=== PATIENT | male | born 1995 | race Two or more races ===

== ENCOUNTER 2025-09-17 18:17 | Inpatient (IN) | payer OTHER ==
[~2025-09-17] VITALS: Ht 177.8 cm; Wt 79.0 kg
--- NOTE | 2025-09-17 18:38 | ED.PDOC ---
Musculoskeletal HPI Comments HPI: Poor Historian. 29-year-old male brought in by camp guard as inmate for known left ankle fracture to the 5th metatarsal base avulsion. Patient was called back to be admitted to the hospital for surgical intervention and repair tomorrow morning by Dr. Vivar. Patient does not appear to be in any severe distress at this fine. He says his pain is only present when he ambulates or patient's weight. Patient states he suffered the injury playing soccer over a week ago. Patient denies any other injuries or complaints. Past Medical History: Denies Past Surgical History: Denies REVIEW OF SYSTEMS: CONSTITUTIONAL: Denies acute: fever, diaphoresis, chills, generalized weakness. HEAD: Denies acute: headache, photophobia Eyes: Denies acute: Double vision, vision loss, eye pain, eye discharge. EARS: Denies acute: tinnitus, hearing loss, ear discharge, ear pain, THROAT: Denies acute: sore throat, swelling, difficulty swallowing , pain with swallowing, change in voice. NECK: Denies acute: neck pain, neck swelling, stiff neck. HEART: Denies acute : chest pain, palpitations, LUNGS: Denies acute: SOB, wheezing, cough, hemoptysis ABDOMEN: Denies acute: abdominal pain, Nausea, Vomiting, diarrhea, melena , hematemesis, hematochezia SKIN: Denies acute: rash, redness, lesions, itchiness. EXTREMITIES: Denies acute: calf pain, numbness, tingling, weakness, Denies acute: Low back pain. Neuro: Denies acute: focal neurological deficit, motor or sensory focal neurological deficit, tremors, seizure like activity, confusion, dizziness, change in mental status, loss of bowel or bladder function, cauda equina like symptoms. : Denies acute: dysuria, hematuria, flank pain, increase in urinary frequency. PSYCH: Denies acute: hallucination, suicidal ideation, homicidal ideation. PHYSICAL EXAM: General: ----no----acute distress, awake and alert. Head: normocephalic, atraumatic. No raccoon's eyes, no mccarthy sign. Neck: supple, trachea is midline, no swelling. Throat: Normal phonation. Eyes:, no erythema, no purulent discharge, no proptosis, no icterus. Heart: regular rate, regular rhythm, no significant murmur appreciated. Lungs: no apparent respiratory distress, Able to speak in full sentences. No wheezing, no rhonchi, no crackles. No stridors Clear to auscultation bilaterally. Abdomen: non tender to palpation, non distended, soft, no guarding, no rebound, + bowel sounds. Neuro: Awake, Alert, oriented to name, self, situation, follows commands GCS=15. Speech is normal. Skin: no petechia, no purpura, no cyanosis, non-pale, not jaundice. Lower extremities: --no - Pitting edema no calf TTP. Evaluation of the left foot: Patient is neurovascularly intact in the affected extremity. Pedal pulses palpable. Sensory and motor are present. Focal tenderness to palpation over the lateral aspect of the left foot at the base of the metatarsal. Makes eye contact. moves all four extremities. Face: no apparent facial droop. ED COURSE: DISCLAIMER: This medical document was created using an electronic medical record system with voice recognition software and computerized dictation system. Although this document has been carefully reviewed, there might still be some phonetic and typographical errors. Occasional wrong-word or "sound-alike" substitutions may have occurred due to the inherent limitations of voice recognition software. These areas are purely typographical due to imperfections of the software programs and do not reflect any compromise in the patient's medical care. Please read the chart carefully and recognize, using context, where these substitutions have occurred. Chief Complaint: Lower Extremity Time Seen by MD: 18:23 Reviewed Notes: Allergies Allergies: Coded Allergies: NO KNOWN ALLERGIES (Unverified , 09/17/25) Home Meds No Active Prescriptions or Reported Meds Information Source: Patient Mode of Arrival: Wheelchair Location: Left Was a procedure done? Was a procedure done?: No Differential Diagnosis EXT Differential Diagnosis: Cellulitis, CHF, Deep Vein Thrombosis, Compartment Synd ashu, Fracture, Sprain, Dislocation, Gout, DJD, Contusion, Strain, Septic, Neurovascular injury, Arthritis, Bursitis X-Ray, Labs, Meds, VS Vital Signs Date Time Temp Pulse Resp B/P (MAP) Pulse Ox O2 Delivery O2 Flow Rate FiO2 11/20/25 21:00 55 18 104/60 (75) 98 09/17/25 20:20 Room Air* 0 21 09/17/25 19:44 98.0 57 16 137/74 (95) 98 98.0 09/17/25 19:44 Room Air* 0 21 09/17/25 18:27 98.2 55 16 144/67 98 98.2 Lab Test 09/17/25 18:43 Range/Units White Blood Count 7.4 4.4-10.8 10^3/uL Red Blood Count 5.70 4.5-5.90 10^6/uL Hemoglobin 15.8 13.5-17.5 g/dL Hematocrit 47.1 41.0-53.0 % Mean Corpuscular Volume 82.7 80.0-100.0 fL Mean Corpuscular Hemoglobin 27.8 L 28.0-32.0 pg Mean Corpuscular Hemoglobin Concent 33.6 32.0-36.0 g/dL Red Cell Distribution Width 13.3 11.8-14.3 % Platelet Count 310 140-450 10^3/uL Mean Platelet Volume 7.8 6.9-10.8 fL Neutrophils (%) (Auto) 42.9 37.0-80.0 % Lymphocytes (%) (Auto) 45.6 10.0-50.0 % Monocytes (%) (Auto) 8.7 0.0-12.0 % Eosinophils (%) (Auto) 2.2 0.0-7.0 % Basophils (%) (Auto) 0.6 0.0-2.0 % Neutrophils # (Auto) 3.2 1.6-8.6 10 ^3/uL Lymphocytes # (Auto) 3.4 0.4-5.4 10 ^3/uL Monocytes # (Auto) 0.6 0-1.3 10 ^3/uL Eosinophils # (Auto) 0.2 0-0.8 10 ^3/uL Basophils # (Auto) 0 0-0.2 10 ^3/uL Nucleated Red Blood Cells 0.1 % Sodium Level 140 136-145 mmol/L Potassium Level 4.0 3.5-5.1 mmol/L Chloride Level 105 98-107 mmol/L Carbon Dioxide Level 24 20-31 mmol/L Anion Gap 11 5-15 Blood Urea Nitrogen 12 9-23 mg/dL Creatinine 1.12 0.700-1.30 mg/dL Glomerular Filtration Rate Calc 92 >90 mL/min BUN/Creatinine Ratio 10.7 10.0-20.0 Serum Glucose 98 74-106 mg/dL Calcium Level 9.6 8.7-10.4 mg/dL Total Bilirubin 0.9 0.2-1.0 mg/dL Aspartate Amino Transferase (AST) 30 13-40 U/L Alanine Aminotransferase (ALT) 61 H 7-40 U/L Alkaline Phosphatase 134 H 46-116 U/L Total Protein 7.7 5.7-8.2 g/dL Albumin 4.7 3.2-4.8 g/dL [place] [id number] Ph: [phone] DIAGNOSTIC IMAGING Diagnostic Imaging Report : [id number] Signed PATIENT: MATTIE PHELPS ACCT: [id number] UNIT: [id number] : 1995 LOC: ER ROOM / BED: / AGE / SEX: 29 / M ADM STATUS: REG ER SERVICE 36 ORDERING PHYSICIAN: NHI BELL DO PROCEDURE(s): LANKL - L ANKLE 3 VIEW REASON: INJURY ORDER NUMBER(s): [id number], ACCESSION NUMBER(s): [id number] CLINICAL INDICATION: INJURY TECHNIQUE: 3 radiographic views of the left ankle were obtained. Comparison: None FINDINGS/IMPRESSION: Mildly displaced fracture of the base of the 5th metatarsal is seen. Distal tibia and fibula are intact. ATED BY: LAZARA SHARP Jr., DO DICTATED DATE/TIME: 09/17/252056 SIGNED BY: LAZARA SHARP Jr., DO SIGNED DATE/TIME: 09/17/252056 CC: Time of 1ST Reevaluation: 00:00 Reevaluation 1ST: N/A Patient Education/Counseling: Diagnosis, Treatment Family Education/Counseling: No Family Present Comments MDM: patient presented with the above HPI.--left 5th metatarsal fracture----workup was initiated. patient was found with the above mentioned diagnosis. the following medications were ordered: please refer to order lists of meds and tests obtained by myself Dr. Bell. Patient ED course and VS have been stabilized. Patient has been reassessed in the ED and remained in a stable condition. Pertinent incidental findings were discussed with the patient and/or family. Patient/family voices understanding and is agreeable with plan. Patient has been observed in the ED adequate length of time to insure improvement/stability. Escalation of care considered: Consideration of escalation to observation or admission Patient was ADMITTED to the medicine team for further evaluation and treatment of their presentation. All the reports of any imaging studies that were ordered by myself were reviewed by myself. Departure 1 Departure Time of Disposition: 19:32 Impression: Primary Impression: Fracture of base of fifth metatarsal bone of left foot Disposition: ADMITTED INPATIENT Admit to: Med Surg Condition: Guarded e-Prescriptions No Active Prescriptions or Reported Meds Discharged With: Self Critical Care Note Critical Care Time?: No I personally scribed for NHI BELL DO ([email or web address]) on 09/17/25 at 18:38. Electronically submitted by Alejandro DeL a Rosa ([email or web address]). NHI BELL DO Sep 17, 2025 18:38
[2025-09-17 18:57] LABS: Hematocrit 47.1 % (41.0-53.0); Hemoglobin 15.8 g/dL (13.5-17.5); Mean Corpuscular Hemoglobin 27.8 pg (28.0-32.0); Mean Corpuscular Volume 82.7 fL (80.0-100.0); Nucleated Red Blood Cells % 0.1 %
[2025-09-17 19:07] LABS: Albumin 4.7 g/dL (3.2-4.8); Anion Gap 11 (5-15); BUN/Creatinine Ratio 10.7 (10.0-20.0); Bilirubin, Total 0.9 mg/dL (0.2-1.0); Blood Urea Nitrogen 12 mg/dL (9-23); Calcium 9.6 mg/dL (8.7-10.4); Carbon Dioxide 24 mmol/L (20-31); Chloride 105 mmol/L (98-107); Glucose 98 mg/dL (74-106); Potassium 4.0 mmol/L (3.5-5.1); Sodium 140 mmol/L (136-145); Total Protein 7.7 g/dL (5.7-8.2)
[2025-09-17 19:09] LABS: Alanine Aminotransferase 61 U/L (7-40); Alkaline Phosphatase 134 U/L (46-116)
--- NOTE | 2025-09-17 21:00 | DVH ---
CLINICAL INDICATION: INJURY TECHNIQUE: 3 radiographic views of the left ankle were obtained. Comparison: None FINDINGS/IMPRESSION: Mildly displaced fracture of the base of the 5th metatarsal is seen. Distal tibia and fibula are intact.
--- NOTE | 2025-09-17 21:38 | DVHHPRES ---
History of Present Illness Resident Creating Document: BEBETO CAMARA RESIDENT History of Present Illness Zachary Sharma, 29-year-old male accompanied by intermediate guards, with no significant past medical history presented to the ER with left lateral ankle pain. The patient was playing when his left ankle twisted, the patient started having pain. X-ray of the left ankle in the ER revealed a right 5th metatarsal fracture. The patient is not experiencing pain at this moment after having analgesics, he denies any chest pain, shortness of breath, fever or any other complaints today. Past medical and surgical history: Nothing significant Smokin pack per 2 months occasionally Alcohol occasionally Denied drug abuse Code status full code Review of Systems Allergies: Coded Allergies: NO KNOWN ALLERGIES (Unverified , 09/17/25) Exam Vital Signs Vital Signs Date Time Temp Pulse Resp B/P (MAP) Pulse Ox O2 Delivery O2 Flow Rate FiO2 09/17/25 20:20 Room Air* 0 21 09/17/25 19:44 98.0 57 16 137/74 (95) 98 98.0 Exam Pt is lying on bed General Appearance: Alert, Oriented X3, Cooperative, Mild distress HEENT: Atraumatic, Mucous membranes moist/pink Respiratory: Clear to auscultation, Normal air movement, No added sounds Cardiovascular: Regular rate, Normal S1, Normal S2, No murmurs Abdominal/ : Active bowel sounds, Soft, no distention, no tenderness Extremities: No edema, Normal pulses, left lateral feet tenderness Skin: No Significant rash, except past surgical scars Neuro: Normal speech, sensorimotor deficits none Psych/Mental Status: Mental status NL, Mood NL Nurse was there as graduate studies dean during examination Labs/Xrays Labs Test 09/17/25 18:43 Range/Units White Blood Count 7.4 4.4-10.8 10^3/uL Red Blood Count 5.70 4.5-5.90 10^6/uL Hemoglobin 15.8 13.5-17.5 g/dL Hematocrit 47.1 41.0-53.0 % Mean Corpuscular Volume 82.7 80.0-100.0 fL Mean Corpuscular Hemoglobin 27.8 L 28.0-32.0 pg Mean Corpuscular Hemoglobin Concent 33.6 32.0-36.0 g/dL Red Cell Distribution Width 13.3 11.8-14.3 % Platelet Count 310 140-450 10^3/uL Mean Platelet Volume 7.8 6.9-10.8 fL Neutrophils (%) (Auto) 42.9 37.0-80.0 % Lymphocytes (%) (Auto) 45.6 10.0-50.0 % Monocytes (%) (Auto) 8.7 0.0-12.0 % Eosinophils (%) (Auto) 2.2 0.0-7.0 % Basophils (%) (Auto) 0.6 0.0-2.0 % Neutrophils # (Auto) 3.2 1.6-8.6 10 ^3/uL Lymphocytes # (Auto) 3.4 0.4-5.4 10 ^3/uL Monocytes # (Auto) 0.6 0-1.3 10 ^3/uL Eosinophils # (Auto) 0.2 0-0.8 10 ^3/uL Basophils # (Auto) 0 0-0.2 10 ^3/uL Nucleated Red Blood Cells 0.1 % Sodium Level 140 136-145 mmol/L Potassium Level 4.0 3.5-5.1 mmol/L Chloride Level 105 98-107 mmol/L Carbon Dioxide Level 24 20-31 mmol/L Anion Gap 11 5-15 Blood Urea Nitrogen 12 9-23 mg/dL Creatinine 1.12 0.700-1.30 mg/dL Glomerular Filtration Rate Calc 92 >90 mL/min BUN/Creatinine Ratio 10.7 10.0-20.0 Serum Glucose 98 74-106 mg/dL Calcium Level 9.6 8.7-10.4 mg/dL Total Bilirubin 0.9 0.2-1.0 mg/dL Aspartate Amino Transferase (AST) 30 13-40 U/L Alanine Aminotransferase (ALT) 61 H 7-40 U/L Alkaline Phosphatase 134 H 46-116 U/L Total Protein 7.7 5.7-8.2 g/dL Albumin 4.7 3.2-4.8 g/dL SEPSIS Sepsis Screen Date sepsis recognized/suspect: Sep 17, 2025 Time Sepsis recognized/suspect: 1943 Recent Procedure: No On Antibiotic Therapy: No Respiratory Rate >20: No Heart Rate >90: No Temp<36 C (96.8 F) or >38.3 C: No SBP <90 or MAP <65 mmHG: No New Acute Mental Status Change: No Is the patient on CPAP, BIPAP,: No Physician Orders Chief Information Security Officer (09/17/25 ) L Ankle 3 View (09/17/25 18:37) Vital Signs Date Time Temp Pulse Resp B/P (MAP) Pulse Ox O2 Delivery O2 Flow Rate FiO2 09/17/25 20:20 Room Air* 0 21 09/17/25 19:44 98.0 57 16 137/74 (95) 98 98.0 09/17/25 19:44 Room Air* 0 21 09/17/25 18:27 98.2 55 16 144/67 98 98.2 Laboratory Tests Test 09/17/25 18:43 White Blood Count 7.4 10^3/uL (4.4-10.8) Assessment/Plan Assessment/Plan Left 5th metatarsal fracture Ankle x-ray: Mildly displaced fracture of the base of the 5th metatarsal is seen. Distal tibia and fibula are intact. -ibuprofen -orthopedics consulted Asymptomatic bradycardia EKG reveals sinus bradycardia heart rate in 40s Monitor for signs symptoms of bradycardia Mild transaminase AST=2ALT Monitor labs GI prophylaxis: Not indicated DVT prophylaxis: Lovenox Diet: Regular Goals of care discussed with the patient for more than 27 minutes: Full code status Case discussed with , patient and RN Plan discussed with: Patient, Other (RN) Date of Service: Sep 17, 2025 Billing Provider: JOSÉ MIGUEL WALL MD Common Visit Codes: 07098-[id number] INP/OBS CARE (HIGH) Secondary Visit Codes: 66625-LCPPNBPA CARE PLAN 30 MINUTES BEBETO CAMARA Sep 17, 2025 21:38 JOSÉ MIGUEL WALL MD Sep 21, 2025 11:24
--- NOTE | 2025-09-17 22:05 | DVH ---
CHEST RADIOGRAPH Indication: Pre operative Technique: Single frontal view of the chest was obtained. Comparison: None Findings: No focal consolidation. No significant pleural effusion. No pneumothorax. Nonenlarged cardiomediastinal silhouette. IMPRESSION: No acute pulmonary process.
[2025-09-17 22:21] LABS: INR 1.01 (0.9-1.15); Partial Thromboplastin Time 28.2 SEC (24.5-34.5); Prothrombin Time 10.7 sec (9.3-11.8)
[2025-09-18] VITALS (9 sets, daily range): BP systolic 103–129; BP diastolic 58–98; PULSE 46–85; RESP 16–19; TEMP 97.5–98.7; O2SAT 96–100
--- NOTE | 2025-09-18 00:42 | ECG ---
[facility] Test Date: 2025-09-18 Test Time: 00:38:57 Pat Name: MATTIE PHELPS Department: ED Room: 0208 Gender: M Laborer Hoisting: NEYMAR : 1995 Requested By: NHI BELL Order Number: [id number] Reading MD: Keith De Leon Measurements Intervals [place] Rate: 45 P: 57 NH: 160 QRS: 80 QRSD: 89 T: 50 QT: 456 QTc: 395 Interpretive Statements Sinus bradycardia Electronically Signed On 09-18-2025 9:10:49 PST by Keith De Leon Please click the below link to view image of tracing.
[2025-09-18] MEDS ORDERED: ceFAZolin 2 GM/D5W50ml 50 ML IV ONE (08:52)
[2025-09-18] MEDS ORDERED: PROPOFOL 10 MG/ML 20 ML IV ONE (09:05)
[2025-09-18] MEDS ORDERED: SODIUM CHLORIDE LOCK 10 ML ONE (09:05)
[2025-09-18] MEDS ORDERED: ONDANSETRON HCL 4 MG/2 ML VIAL ONE (09:05)
[2025-09-18] MEDS ORDERED: MEPERIDINE HCL (25 MG/ML) 1ML VIAL ONE (09:05)
[2025-09-18] MEDS ORDERED: fentaNYL CITRATE 100 MCG/2 ML VL ONE (09:05)
[2025-09-18] MEDS ORDERED: LIDOCAINE 1% INJ PF 5ML AMP ONE (09:05)
[2025-09-18] MEDS ORDERED: MIDAZOLAM HCL 2MG/2ML 2ml VIAL (1mg/ml) ONE (09:05)
[2025-09-18] MEDS ORDERED: KETAMINE 50mg/ML 1ml syringe ONE (09:05)
--- NOTE | 2025-09-18 09:09 | DVHINCON2 ---
Date of service: Sep 17, 2025 Reason for Consultation Left fifth metatarsal fracture History of Present Illness 29 yo M with 1 week hx of playing soccer and injuring his left foot. immediate pain/swellign/trouble bearing weight on left leg. No cp/sob/abd pain. He has not been weight bearing on left leg. Past Medical History Past medical and surgical history: Denies Smokin pack per month Alcohol occasionally Denied drug abuse Past Surgical History denies Family History: Patient reports no known family medical history. Social History incarcerated Allergies: Coded Allergies: NO KNOWN ALLERGIES (Unverified , 09/17/25) Home Meds No Active Prescriptions or Reported Meds Current Medications Current Medications Medications (Trade) Dose Ordered Sig/Rylee Route PRN Reason Start Time Stop Time Status Last Admin Enoxaparin Sodium (Lovenox) 40 mg DAILY SC 09/18/25 10:00 Review of Systems 10 point ROS is neg except per HPI Vital Signs Vital Signs Date Time Temp Pulse Resp B/P (MAP) Pulse Ox O2 Delivery O2 Flow Rate FiO2 09/18/25 08:02 Room Air* 0 21 09/18/25 05:00 97.5 76 18 104/58 (73) 100 97.5 Physical Exam NAD LLE: +swelling/bruising noted to midfoot to calc +ta/gs/ehl/fhl foot wwp pain with PROM at fifth toe Labs/Diagnostic Data Labs Test 09/18/25 08:15 09/17/25 21:57 09/17/25 18:43 Range/Units Prothrombin Time 10.7 9.3-11.8 sec Prothrombin Time INR 1.01 0.9-1.15 Activated Partial Thromboplast Time 28.2 24.5-34.5 SEC White Blood Count 7.4 4.4-10.8 10^3/uL Red Blood Count 5.70 4.5-5.90 10^6/uL Hemoglobin 15.8 13.5-17.5 g/dL Hematocrit 47.1 41.0-53.0 % Mean Corpuscular Volume 82.7 80.0-100.0 fL Mean Corpuscular Hemoglobin 27.8 L 28.0-32.0 pg Mean Corpuscular Hemoglobin Concent 33.6 32.0-36.0 g/dL Red Cell Distribution Width 13.3 11.8-14.3 % Platelet Count 310 140-450 10^3/uL Mean Platelet Volume 7.8 6.9-10.8 fL Neutrophils (%) (Auto) 42.9 37.0-80.0 % Lymphocytes (%) (Auto) 45.6 10.0-50.0 % Monocytes (%) (Auto) 8.7 0.0-12.0 % Eosinophils (%) (Auto) 2.2 0.0-7.0 % Basophils (%) (Auto) 0.6 0.0-2.0 % Neutrophils # (Auto) 3.2 1.6-8.6 10 ^3/uL Lymphocytes # (Auto) 3.4 0.4-5.4 10 ^3/uL Monocytes # (Auto) 0.6 0-1.3 10 ^3/uL Eosinophils # (Auto) 0.2 0-0.8 10 ^3/uL Basophils # (Auto) 0 0-0.2 10 ^3/uL Nucleated Red Blood Cells 0.1 % Sodium Level 140 136-145 mmol/L Potassium Level 4.0 3.5-5.1 mmol/L Chloride Level 105 98-107 mmol/L Carbon Dioxide Level 24 20-31 mmol/L Anion Gap 11 5-15 Blood Urea Nitrogen 12 9-23 mg/dL Creatinine 1.12 0.700-1.30 mg/dL Glomerular Filtration Rate Calc 92 >90 mL/min BUN/Creatinine Ratio 10.7 10.0-20.0 Serum Glucose 98 74-106 mg/dL Calcium Level 9.6 8.7-10.4 mg/dL Total Bilirubin 0.9 0.2-1.0 mg/dL Aspartate Amino Transferase (AST) 30 13-40 U/L Alanine Aminotransferase (ALT) 61 H 7-40 U/L Alkaline Phosphatase 134 H 46-116 U/L Total Protein 7.7 5.7-8.2 g/dL Albumin 4.7 3.2-4.8 g/dL Plan/Recommendation 29 yo M sp mechanical twisting injury to left foot with displaced left fifth metatarsal fracture 1. Plan for open reduction internal fixation of left fifth metatarsal fracture/ peroneal tendon repair 2. Risks benefits options and alternatives reviewed in depth. Risks include but not exclusive to bleeding infection nerve injury hardware failure nonunion malunion chronic pain blood clots cardiac and pulmonary complications amputation and . Patient understands and wishes to proceed with surgery. 3. NPO/IVF 4. pain control Plan discussed with: Patient BANDAR MARTIN MD Sep 18, 2025 09:09
--- NOTE | 2025-09-18 09:12 | DVHOP2 ---
Operative Report - 2 Report Details Date: 09/18/25 Preop Diagnosis: Left fifth metatarsal fracture, peroneal brevis tendon tear Postop Diagnosis: Left fifth metatarsal fracture, peroneal brevis tendon tear Surgeon: Rigo Olivia MD Anesthesiologist: Dionicio ELAINE Anesthesia: General Implant: Ossio 4.0 screw Consent: The patient was informed of the risks and benefits of the procedure. These include but are not limited to complications of anesthesia, postoperative infection, incomplete relief of symptoms, recurrence of symptoms, damage to blood vessels, nerves and tendons, deep venous thrombosis, pulmonary embolism and possible need for repeat surgery in the future. Estimated Blood Loss: 5 cc Name of Procedure Performed 1. Open reduction internal fixation of left fifth metatarsal fracture 2. Peroneal brevis tendon repair 3. Intraop fluoroscopy Procedure Details Procedure Details: INDICATIONS: sustained a left fifth metatarsal base fracture with associated peroneus brevis tendon injury. Given the displacement and risk of nonunion, as well as the tendon injury, operative management was indicated. DESCRIPTION OF PROCEDURE: The patient was brought to the operating room and placed supine on the operating table. After induction of general anesthesia, The left foot was prepped and draped in the usual sterile fashion. An approximately 4 cm longitudinal incision was made over the lateral aspect of the left foot, centered over the base of the fifth metatarsal. Dissection was carried down through the subcutaneous tissue, taking care to protect the sural nerve and peroneal tendons. The fracture at the base of the fifth metatarsal was identified. Hematoma and interposed soft tissue were cleared from the fracture site. The peroneus brevis tendon was visualized at its insertion on the fifth metatarsal tuberosity and noted to be avulsed and torn. The peroneus brevis tendon was debrided of any devitalized tissue. The tendon ends were reapproximated using a nonabsorbable suture in a modified Krackow fashion, ensuring anatomic methodist of tendon continuity and tension. The repair was reinforced with additional epitendinous sutures as needed. The fracture fragments were reduced anatomically under direct visualization and temporarily stabilized with a Iliana wire. Intraoperative fluoroscopy was used to confirm satisfactory reduction in both AP and oblique planes. Definitive fixation was achieved using a 4.0 absorbable ossio screw, placed from the base of the fifth metatarsal into the shaft, ensuring purchase across the fracture site. The fixation was confirmed to be stable under fluoroscopy, with methodist of length, alignment, and rotation. The wound was irrigated with copious saline. The peroneal tendon sheath was closed with absorbable suture. The subcutaneous tissue and skin were closed in layers with absorbable suture/ steri-strips/dermabond respectively. A sterile dressing was applied, and the foot was placed in a well-padded posterior splint in neutral position. Condition Good Disposition Still a Patient RIGO OLIVIA MD Sep 18, 2025 09:12
[2025-09-18] MEDS ORDERED: HYDROcodone-ACET 5/325MG TAB PO PRN (10:00)
[2025-09-18] MEDS ORDERED: HYDROmorphone HCL 2 MG/ML VL/or syr IV PRN ×3 (10:00→10:30)
[2025-09-18] MEDS: ENOXAPARIN SOD 40 MG/0.4 ML SYRINGE SC SCH (10:00)
[2025-09-18] MEDS ORDERED: MORPHINE SULFATE 4 MG/ML SYR/VIAL IV PRN (10:30)
[2025-09-18] MEDS ORDERED: MORPHINE SULFATE INJ 2 MG/ml SYRG IV PRN (10:30)
[2025-09-18] MEDS ORDERED: METOCLOPRAMIDE HCL 5MG/ml INJ 2ml VIAL IV PRN (10:30)
[2025-09-18] MEDS: KETOROLAC TROMETH 30 MG/ML 1ML VIAL IV ONE (10:43)
[2025-09-18 11:22] LABS: Hepatitis A Total Antibody Positive (Negative); Hepatitis B Surface Antigen Negative (Negative); Hepatitis C Antibody Negative (Negative)
[2025-09-18] MEDS: ceFAZolin 1GM/50ML 50 ML IV SCH (15:01)
--- NOTE | 2025-09-18 15:35 | DVHPN2 ---
Reviewed: H&P Changes from previous H/P or p: No Changes General: Per HPI Objective Vitals Vital Signs Date Time Temp Pulse Resp B/P (MAP) Pulse Ox O2 Delivery O2 Flow Rate FiO2 09/18/25 13:00 98.1 61 16 111/77 (88) 98 98.1 09/18/25 10:13 Room Air 0 96 Intake/Output Intake and Output 09/18/25 07:00 Intake Total 0 ml Balance 0 ml Intake Oral 0 ml # Voids 1 Exam General Appearance: Alert, Oriented X3, Cooperative, Mild distress HEENT: Atraumatic, Mucous membranes moist/pink Respiratory: Clear to auscultation, Normal air movement, No added sounds Cardiovascular: Regular rate, Normal S1, Normal S2, No murmurs Abdominal/ : Active bowel sounds, Soft, no distention, no tenderness Extremities: No edema, Normal pulses, left lateral feet tenderness Skin: No Significant rash, except past surgical scars Neuro: Normal speech, sensorimotor deficits none Psych/Mental Status: Mental status NL, Mood NL Nurse was there as scabbler during examination Medications Current Medications Medications Dose Ordered Sig/Rylee Route Start Time Stop Time Status Last Admin Dose Admin Enoxaparin Sodium 40 mg DAILY SC 09/18/25 10:00 Cefazolin Sodium 50 ml @ 100 mls/hr Q8HR IV 09/18/25 14:00 09/19/25 06:29 09/18/25 15:01 100 MLS/HR Acetaminophen/ Hydrocodone Bitart 1 tab Q4HPRN PRN PO 09/18/25 10:00 Acetaminophen/ Hydrocodone Bitart 1 tab Q6HPRN PRN PO 09/18/25 10:15 Hydromorphone HCl 0.5 mg Q3HPRN PRN IV 09/18/25 10:00 Hold Laboratory Results Laboratory Tests 09/17/25 18:43 Chemistry Test 09/17/25 18:43 Albumin 4.7 g/dL (3.2-4.8) Calcium Level 9.6 mg/dL (8.7-10.4) Total Protein 7.7 g/dL (5.7-8.2) Coagulation Test 09/17/25 21:57 Prothrombin Time 10.7 sec (9.3-11.8) Prothrombin Time INR 1.01 (0.9-1.15) Activated Partial Thromboplast Time 28.2 SEC (24.5-34.5) LFT Test 09/17/25 18:43 Alanine Aminotransferase (ALT) 61 U/L (7-40) H Alkaline Phosphatase 134 U/L (46-116) H Aspartate Amino Transferase (AST) 30 U/L (13-40) Total Bilirubin 0.9 mg/dL (0.2-1.0) Labs and/or images reviewed: Labs reviewed by me, Image(s) reviewed by me Assessment/Plan Assessment/Plan Zachary Sharma, 29-year-old male accompanied by detention guards, with no significant past medical history presented to the ER with left lateral ankle pain. The patient was playing when his left ankle twisted, the patient started having pain. X-ray of the left ankle in the ER revealed a right 5th metatarsal fracture. The patient is not experiencing pain at this moment after having analgesics, he denies any chest pain, shortness of breath, fever or any other complaints today. 09/18: Patient had surgery today ORIF of left 5th metatarsal. Patient is non weight-bearing for the left lower extremity. PT consult pending. Focus on pain control and beta recommendations. Left 5th metatarsal fracture sp ORIF 09/18 Ankle x-ray: Mildly displaced fracture of the base of the 5th metatarsal is seen. Distal tibia and fibula are intact. -ibuprofen -orthopedics consulted. sp ORIF Asymptomatic bradycardia EKG reveals sinus bradycardia heart rate in 40s Monitor for signs symptoms of bradycardia Mild transaminase AST=2ALT Monitor labs GI prophylaxis: Not indicated DVT prophylaxis: Lovenox Diet: Regular Plan discussed with: Patient Date of Service: Sep 18, 2025 Billing Provider: FLOR BERNARDO MD Common Visit Codes: [id number] INP/OBS CARE(HIGH) FLOR BERNARDO MD Sep 18, 2025 15:34
--- NOTE | 2025-09-18 17:46 | DVH ---
CLINICAL INDICATION: ORIF LEFT 5TH METATARSAL TECHNIQUE: 3 intraoperative images of an open reduction internal fixation of a 5th metatarsal fracture. Comparison: None FINDINGS/IMPRESSION: Fluoro time 32.4 seconds Cumulative dose: 0.55 mGy
--- NOTE | 2025-09-18 17:49 | DVH ---
C-ARM FLUOROSCOPY: PROCEDURE: ORIF 5th metatarsal fracture FLUOROSCOPY TIME: 32 seconds fluoro time Air Kerma: 0.55 mgy FINDINGS: Spot intraoperative C arm radiographs demonstrating less than 60 minutes. IMPRESSION: 1. Please refer to surgical report for detailed findings.
[2025-09-19] VITALS (8 sets, daily range): BP systolic 99–121; BP diastolic 56–86; PULSE 46–69; RESP 15–21; TEMP 96.2–98.8; O2SAT 95–99
[2025-09-19] MEDS: HYDROcodone-ACET 10/325MG TAB PO PRN (06:02)
--- NOTE | 2025-09-19 11:43 | DVHPN2 ---
Reviewed: H&P Changes from previous H/P or p: No Changes General: Per HPI Objective Vitals Vital Signs Date Time Temp Pulse Resp B/P (MAP) Pulse Ox O2 Delivery O2 Flow Rate FiO2 09/19/25 09:00 96.2 46 18 99/66 (77) 96 96.2 09/18/25 20:00 Room Air* 0 21 Intake/Output Intake and Output 09/19/25 07:00 Intake Total 2150 ml Balance 2150 ml Intake Oral 1900 ml IV Total 250 ml # Voids 5 Exam General Appearance: Alert, Oriented X3, Cooperative, Mild distress HEENT: Atraumatic, Mucous membranes moist/pink Respiratory: Clear to auscultation, Normal air movement, No added sounds Cardiovascular: Regular rate, Normal S1, Normal S2, No murmurs Abdominal/ : Active bowel sounds, Soft, no distention, no tenderness Extremities: No edema, Normal pulses, left lateral feet tenderness Skin: No Significant rash, except past surgical scars Neuro: Normal speech, sensorimotor deficits none Psych/Mental Status: Mental status NL, Mood NL Nurse was there as health and wellness director during examination Medications Current Medications Medications Dose Ordered Sig/Rylee Route Start Time Stop Time Status Last Admin Dose Admin Enoxaparin Sodium 40 mg DAILY SC 09/18/25 10:00 09/19/25 09:35 40 MG Acetaminophen/ Hydrocodone Bitart 1 tab Q4HPRN PRN PO 09/18/25 10:00 Acetaminophen/ Hydrocodone Bitart 1 tab Q6HPRN PRN PO 09/18/25 10:15 09/19/25 06:02 1 TAB Hydromorphone HCl 0.5 mg Q3HPRN PRN IV 09/18/25 10:00 Hold Laboratory Results Laboratory Tests 09/17/25 18:43 Microbiology Microbiology Date/Time Source Procedure Growth Status 09/18/25 03:59 Nose MRSA Screen - Final Complete Labs and/or images reviewed: Labs reviewed by me, Image(s) reviewed by me Assessment/Plan Assessment/Plan Zachary Sharma, 29-year-old male accompanied by long term guards, with no significant past medical history presented to the ER with left lateral ankle pain. The patient was playing when his left ankle twisted, the patient started having pain. X-ray of the left ankle in the ER revealed a right 5th metatarsal fracture. The patient is not experiencing pain at this moment after having analgesics, he denies any chest pain, shortness of breath, fever or any other complaints today. 09/18: Patient had surgery today ORIF of left 5th metatarsal. Patient is non weight-bearing for the left lower extremity. PT consult pending. Focus on pain control and beta recommendations. 09/19: Waiting for PT recommendations, we will act accordingly thereafter. Patient doing well. Continuing pain control with p.o. opiate medications. Left 5th metatarsal fracture sp ORIF 09/18 Ankle x-ray: Mildly displaced fracture of the base of the 5th metatarsal is seen. Distal tibia and fibula are intact. -ibuprofen -orthopedics consulted. sp ORIF Asymptomatic bradycardia EKG reveals sinus bradycardia heart rate in 40s Monitor for signs symptoms of bradycardia Mild transaminase AST=2ALT Monitor labs GI prophylaxis: Not indicated DVT prophylaxis: Lovenox Diet: Regular Plan discussed with: Patient Date of Service: Sep 19, 2025 Billing Provider: FLOR BERNARDO MD Common Visit Codes: [id number] INP/OBS CARE(HIGH) FLOR BERNARDO MD Sep 19, 2025 11:43
[2025-09-19] MEDS: LIDOCAINE 1% HCL (LOCAL ANESTH.) INJ 20ML MDV ONE (12:09)
[2025-09-19] MEDS: BUPIVACAINE 0.25% INJ 50ML VIAL ONE (12:09)
[2025-09-20] VITALS (7 sets, daily range): BP systolic 106–129; BP diastolic 66–84; PULSE 52–72; RESP 16–22; TEMP 36.5; O2SAT 96–98
--- NOTE | 2025-09-20 06:59 | DVHPN2 ---
Progress Note Date Seen: Sep 20, 2025 Medical Necessity Reason Pt with a Central, PICC or Fol: No Subjective Patient reports: No new complaints, Feels better Objective vital signs Vital Sign Date Time Temp Pulse Resp B/P (MAP) Pulse Ox O2 Delivery O2 Flow Rate FiO2 09/20/25 05:00 97.6 62 17 117/70 (86) 96 97.6 09/19/25 20:00 Room Air* 0 21 Total Intake and Output 09/19/25 09/19/25 09/20/25 15:00 23:00 07:00 Intake Total 620 ml 450 ml Output Total 575 ml Balance 620 ml -125 ml medications Current Medications Medications Dose Ordered Sig/Rylee Route Start Time Stop Time Status Last Admin Dose Admin Enoxaparin Sodium 40 mg DAILY SC 09/18/25 10:00 09/19/25 09:35 40 MG Acetaminophen/ Hydrocodone Bitart 1 tab Q4HPRN PRN PO 09/18/25 10:00 Acetaminophen/ Hydrocodone Bitart 1 tab Q6HPRN PRN PO 09/18/25 10:15 09/20/25 03:11 1 TAB Hydromorphone HCl 0.5 mg Q3HPRN PRN IV 09/18/25 10:00 Hold Examination: GENERAL:Normal, MSK:Abnormal laboratory and microbiology Laboratory Tests 09/17/25 18:43 Test 09/17/25 18:43 Range/Units Serum Glucose 98 74-106 mg/dL Microbiology Date/Time Source Procedure Growth Status 09/18/25 03:59 Nose MRSA Screen - Final Complete Problem List/Assessment/Plan Problem List/Assessment/Plan 29 yo M sp ORIF Left fifth metatarsal fracture 1. CAM boot 2. okay to change dressing as needed 3. pain control - norco x 2 weeks 4. dc planning 5. fu in [facility] in 2 weeks 6. NWB LLE/ crutches Plan discussed with: Patient BANDAR MARTIN MD Sep 20, 2025 06:59
--- NOTE | 2025-09-20 10:17 | DVHDS2 ---
Discharge Summary Date of Admission Sep 17, 2025 at 21:39 Date of Discharge: Sep 20, 2025 Labs/Diagnostic Data: Laboratory Results Test 09/18/25 08:15 09/17/25 21:57 09/17/25 18:43 Gamma Glutamyl Transpeptidase 29 U/L (<73) Hepatitis A Antibody Total Positive (Negative) Hepatitis B Surface Antigen Negative (Negative) Hepatitis B Surface Antibody Positive (Negative) Hepatitis B Core Total Antibody Negative (Negative) Hepatitis C Antibody Negative (Negative) Prothrombin Time 10.7 sec (9.3-11.8) Prothrombin Time INR 1.01 (0.9-1.15) Activated Partial Thromboplast Time 28.2 SEC (24.5-34.5) White Blood Count 7.4 10^3/uL (4.4-10.8) Red Blood Count 5.70 10^6/uL (4.5-5.90) Hemoglobin 15.8 g/dL (13.5-17.5) Hematocrit 47.1 % (41.0-53.0) Mean Corpuscular Volume 82.7 fL (80.0-100.0) Mean Corpuscular Hemoglobin 27.8 pg (28.0-32.0) Mean Corpuscular Hemoglobin Concent 33.6 g/dL (32.0-36.0) Red Cell Distribution Width 13.3 % (11.8-14.3) Platelet Count 310 10^3/uL (140-450) Mean Platelet Volume 7.8 fL (6.9-10.8) Neutrophils (%) (Auto) 42.9 % (37.0-80.0) Lymphocytes (%) (Auto) 45.6 % (10.0-50.0) Monocytes (%) (Auto) 8.7 % (0.0-12.0) Eosinophils (%) (Auto) 2.2 % (0.0-7.0) Basophils (%) (Auto) 0.6 % (0.0-2.0) Neutrophils # (Auto) 3.2 10 ^3/uL (1.6-8.6) Lymphocytes # (Auto) 3.4 10 ^3/uL (0.4-5.4) Monocytes # (Auto) 0.6 10 ^3/uL (0-1.3) Eosinophils # (Auto) 0.2 10 ^3/uL (0-0.8) Basophils # (Auto) 0 10 ^3/uL (0-0.2) Nucleated Red Blood Cells 0.1 % Sodium Level 140 mmol/L (136-145) Potassium Level 4.0 mmol/L (3.5-5.1) Chloride Level 105 mmol/L (98-107) Carbon Dioxide Level 24 mmol/L (20-31) Anion Gap 11 (5-15) Blood Urea Nitrogen 12 mg/dL (9-23) Creatinine 1.12 mg/dL (0.700-1.30) Glomerular Filtration Rate Calc 92 mL/min (>90) BUN/Creatinine Ratio 10.7 (10.0-20.0) Serum Glucose 98 mg/dL (74-106) Calcium Level 9.6 mg/dL (8.7-10.4) Total Bilirubin 0.9 mg/dL (0.2-1.0) Aspartate Amino Transferase (AST) 30 U/L (13-40) Alanine Aminotransferase (ALT) 61 U/L (7-40) Alkaline Phosphatase 134 U/L (46-116) Total Protein 7.7 g/dL (5.7-8.2) Albumin 4.7 g/dL (3.2-4.8) Other Laboratory Tests 09/17/25 18:43 Brief Hx & Hospital Course: 29-year-old male accompanied by retirement guards, with no significant past medical history presented to the ER with left lateral ankle pain. The patient was playing when his left ankle twisted, the patient started having pain. X-ray of the left ankle in the ER revealed a right 5th metatarsal fracture. The patient is not experiencing pain at this moment after having analgesics, he denies any chest pain, shortness of breath, fever or any other complaints today. 09/18: Patient had surgery today ORIF of left 5th metatarsal. Patient is non weight-bearing for the left lower extremity. PT consult pending. Focus on pain control and beta recommendations. 09/19: Waiting for PT recommendations, we will act accordingly thereafter. Patient doing well. Continuing pain control with p.o. opiate medications. 09/20: worked with PT, they recommend crutches versus front wheel walker. Crutches that preferred patient is young healthy. Vital signs stable, stable for discharge as per plan below. Pain control to be continued as per plan below by Skilled Nursing facility. Patient needs crutches as part of his rehab. Patient's stay nonweightbearing on the left lower extremity. Patient's follow up outpatient 1-2 weeks with Orthopedics. Stable for discharge today. Diagnosis: Left 5th metatarsal fracture sp ORIF repair 09/18/25, NWB for LLE Asymptomatic bradycardia Mild transaminitis Plan: - Patient to follow up with orthopedics 1-2 weeks -Nonweightbearing on left leg, use crutches to ambulate, Follow up with Orthopedic to clear this status -Present pharmacy to supply patient with pain control, for pain use Tylenol 500 mg q.4 H as 1st line prn, second-line ibuprofen 400 mg up to Q 8 prn, 3rd line can use Cropwell 5 mg t.i.d. prn. -Can continue regular diet Condition at Discharge: Good Final Diagnosis/Problems List Left 5th metatarsal fracture sp ORIF repair 09/18/25, NWB for LLE Asymptomatic bradycardia Mild transaminitis Discharge Disposition: Skilled Nursing Discharge Instruct/Medications No Active Prescriptions or Reported Meds Discharge Statement: "Patient was advised to return to the ER or call 911 if any headaches, dizziness, shortness of breath, chest pain, abdominal pain, bleeding, fevers, or worsening of medical condition. Patient was counseled about treatment plan, medications, possible side effects, patientverbalized understanding. All questions were answered to the best of my ability. This discharge took greater then 30 minutes in planning, reviewing documentation, counseling the patient, and discussing with other team members." Date of Service: Sep 20, 2025 Billing Provider: FLOR BERNARDO MD Common Visit Codes: [id number] DISCH DAY >30min FLOR BERNARDO MD Sep 20, 2025 10:17
== END 2025-09-20 16:48 | disposition home or self-care (01) | DRG 505 ==
LOC: EEVIPCON 18:17 → ER 18:17 → OVERFLOW 21:39 → CENTRAL 09-18 01:44
PROVIDERS: ATTEND Orthopaedic Surgery Adult Reconstructive Orthopaedic Surgery
PROC: 0LUP07Z Supplement Left Lower Leg Tendon with Autologous Tissue Substitute, Open Approach (ICD-10-PCS; 2025-09-18)
PROC: 0QSP04Z Reposition Left Metatarsal with Internal Fixation Device, Open Approach (ICD-10-PCS; principal; 2025-09-18 09:17)
DX: S92.352A Displaced fracture of fifth metatarsal bone, left foot, initial encounter for closed fracture (principal); R00.1 Bradycardia, unspecified; R74.01 Elevation of levels of liver transaminase levels; Z87.891 Personal history of nicotine dependence; X50.1XXA Overexertion from prolonged static or awkward postures, initial encounter; Y93.89 Activity, other specified; Y92.89 Other specified places as the place of occurrence of the external cause; Y99.8 Other external cause status
CPT/HCPCS: 36415; 71045; 73610; 73620; 76000; 80053; 82977; 85025; 85610; 85730; 86704; 86706; 86708; 86803; 86850; 86900; 86901; 87081; 87340; 93005; 97110; 97116; 97163; 97530; G0378; J2003; J2250; J2405; J2704; J3490